=== PATIENT | female | born 1980 | race Caucasian/White ===

== ENCOUNTER → 2021-01-31 08:52 | Outpatient (CLI) | payer MEDICARE, MEDICAID, SELFPAY ==
--- NOTE | ~2021-01-31 | XR_ITS ---
XR_[id number]_CR 01/31/2021 09:27 Indication: Cervicalgia Procedure: 5 views of the cervical spine Comparison: No prior studies for comparison. Findings: There is mild degenerative disc disease and endplate hypertrophy at C4-5. There is fusion a t C3-4, likely developmental. No acute fracture or traumatic malalignment. No prevertebral soft tissu e swelling. There is disc narrowing at C5-6 and C6-7. There is mild multilevel uncinate degenerative change. Lung apices are normal. Odontoid process within normal limits. Impression: 1: Mild-moderate cervical spondylosis. Reviewed, dictated and finalized at location B. Impression: 1: Mild-moderate cervical spondylosis.
--- NOTE | ~2021-01-31 | XR_ITS ---
EXAMINATION: XR thoracic spine 2V EXAM DATE: 01/31/2021 09:27 INDICATION: Low back pain, cervicalgia. Posterior c spine pain, pain between scapula. Central mid T s pine pain, pain across low back and bilateral hips. Bilateral leg pain/numbness/tingle. TECHNIQUE: Frontal and lateral projections of the thoracic spine as well as lateral swimmers projecti on of the upper thoracic spine for interpretation. There is no prior study for comparison. FINDINGS: Thoracic spine stimulator leads with tips projecting over the T8 vertebral body level. The re is mild mid and lower thoracic disc disease. There are no bony erosions identified. The vertebral bodies are aligned in the AP dimension. Vertebral body heights are maintained. Paraspinal soft tissue is unremarkable. IMPRESSION: 1. Spine stimulator lead tips at T8 level. 2. Mild mid and lower thoracic spondylosis. Reviewed, dictated and finalized at location A.
--- NOTE | ~2021-01-31 | XR_ITS ---
XR lumbar spine 2-3V 01/31/2021 09:27 Indication: Low back pain Procedure: 3 views lumbar spine Comparison: No prior studies for comparison. Findings: There is disc narrowing at L4-5. There are right pedicle screws at L5-S1, consistent with p osterior fusion with discectomy. There is prosthetic disc device at L5-S1. There is normal lumbar ali gnment. Vertebral body heights are maintained. There are neural stimulator leads, superior extent not visualized. Impression: 1: Moderate lower lumbar spondylosis with fusion at L5-S1. Reviewed, dictated and finalized at location B. Impression: 1: Moderate lower lumbar spondylosis with fusion at L5-S1.
== END ==
PROVIDERS: Visit Provider Nurse Practitioner Family
DX: M47.894 Other spondylosis, thoracic region (principal); Z96.82 Presence of neurostimulator; M47.897 Other spondylosis, lumbosacral region; M47.892 Other spondylosis, cervical region
CPT/HCPCS: 72040; 72070; 72100